=== PATIENT | male | born 1960 | race Hispanic/Latino ===

== ENCOUNTER 2018-06-18 07:20 | Emergency (ER) | payer MEDICARE ==
[2018-06-18 07:25] VITALS: BMI 29.9
--- NOTE | 2018-06-18 08:08 | ED PDOC ---
Arrival/HPI - General Chief Complaint: Psychiatric Evaluation Time Seen by Provider: 06/18/18 07:22 Historian: Patient, EMS - History of Present Illness Narrative History of Present Illness (Text): 06/18/18 08:09 58 year old male, whose past medical history includes asthma, hypothyroidism, arthritis, and schizophrenia, who presents to the emergency department brought in by EMS, for lack of sleeping and being off schizophrenia pills. EMS reports patient has been rambling and not making any sense when speaking. He denies fevers, chills, headache, dizziness, chest pain, shortness of breath, dyspnea on exertion, cough, abdominal pain, nausea, vomiting, diarrhea, back pain, neck pain, or any other complaint. Time/Duration: < week Symptom Onset: Gradual Symptom Course: Unchanged Activities at Onset: Light Context: Home Past Medical History - Provider Review Nursing Documentation Reviewed: Yes - Infectious Disease Hx of Infectious Diseases: None - Tetanus Immunization Tetanus Immunization: Unknown - Cardiac Hx Cardiac Disorders: No - Pulmonary Hx Asthma: Yes - Neurological Hx Neurological Disorder: No - HEENT Hx HEENT Disorder: No - Renal Hx Renal Disorder: No - Endocrine/Metabolic Hx Endocrine Disorders: Yes Hx Hypothyroidism: Yes - Hematological/Oncological Hx Blood Disorders: No - Integumentary Hx Dermatological Disorder: No - Musculoskeletal/Rheumatological Hx Arthritis: Yes - Gastrointestinal Hx Gastrointestinal Disorders: No - Genitourinary/Gynecological Hx Genitourinary Disorders: No - Psychiatric Hx Psychophysiologic Disorder: Yes Hx Schizophrenia: Yes Hx Substance Use: No - Past Surgical History Past Surgical History: No Previous - Anesthesia Hx Anesthesia: No Hx Anesthesia Reactions: No Hx Malignant Hyperthermia: No - Suicidal Assessment Feels Threatened In Home Enviroment: No Family/Social History - Physician Review Nursing Documentation Reviewed: Yes Family/Social History: No Known Family HX Smoking Status: Unknown If Ever Smoked Hx Alcohol Use: No Hx Substance Use: No Hx Substance Use Treatment: No Allergies/Home Meds Allergies/Adverse Reactions: Allergies No Known Allergies Allergy (Verified 07/22/12 15:21) Home Medications: Home Meds Medication Instructions Recorded Confirmed Levothyroxine [Synthroid] 50 mcg PO DAILY 06/18/18 06/18/18 clonazePAM [Klonopin] 0.5 mg PO DAILY 06/18/18 06/18/18 Review of Systems - Physician Review All systems were reviewed & negative as marked: Yes - Review of Systems Cardiovascular: absent: Chest Pain Gastrointestinal: absent: Abdominal Pain Physical Exam - Physical Exam Narrative Physical Exam (Text): 06/18/18 08:13 Constitutional: No acute distress. Head: Normocephalic. Atraumatic. Eyes: PERRL. ENT: Moist mucous membranes. Neck: Supple. Cardiovascular: Regular rate. Chest: No tenderness. Respiratory: Clear to auscultation bilaterally. GI: Soft. Nontender. Nondistended. Back: No CVA tenderness. Musculoskeletal: No tenderness or swelling of extremities. Skin: No rash. Neurologic: Alert, no focal deficit. Vital Signs Reviewed: Yes Vital Signs Temp Pulse Resp BP Pulse Ox 06/18/18 07:33 98 F 92 H 18 109/74 96 Temperature: Afebrile Blood Pressure: Normal Pulse: Tachycardic Respiratory Rate: Normal Appearance: Positive for: Well-Appearing, Non-Toxic, Comfortable Pain Distress: None Mental Status: Positive for: Alert and Oriented X 3 Medical Decision Making ED Course and Treatment: 06/18/18 08:14 Impression: 58 year old male who presents to the emergency department complaining of lack of sleep and running out of his schizophrenia pills. Plan: -- EKG -- Labs -- Chest X-ray -- Urinalysis -- Reassess and disposition Prior Visits: Notes and results from previous visits were reviewed. Progress Notes: EKG reviewed by me, shows: NSR 98 bpm, no ST elevations 06/18/18 08:24 Chest X-ray reviewed by me, shows: no acute disease 06/18/18 13:05 Evalauted by PES, will initate screening. 06/20/18 19:39 Patient was signed back out to me, accepted to [facility], pending bed availability. I signed it back out to ED night team the next day pending bed availability. I returned to work today, patient now not present in ED. - Lab Interpretations I have reviewed the lab results: Yes - RAD Interpretation Radiology Orders: 06/18/18 07:45 CHEST PORTABLE [RAD] Stat Receiving Associate: Radiologist - EKG Interpretation Interpreted by ED Physician: Yes Type: 12 lead EKG - Scribe Statement The provider has reviewed the documentation as recorded by the Scribe Kimi Mares Provider Scribe Attestation: All medical record entries made by the Scribe were at my direction and personally dictated by me. I have reviewed the chart and agree that the record accurately reflects my personal performance of the history, physical exam, medical decision making, and the department course for this patient. I have also personally directed, reviewed, and agree with the discharge instructions and disposition. Disposition/Present on Arrival - Present on Arrival Any Indicators Present on Arrival: No History of DVT/PE: No History of Uncontrolled Diabetes: No Urinary Catheter: No History of Decub. Ulcer: No History Surgical Site Infection Following: None - Disposition Have Diagnosis and Disposition been Completed?: No Diagnosis: Schizophrenia Disposition: Transfer [facility] Disposition Time: 12:00 Condition: STABLE Forms: [employer] (Portuguese)
[2018-06-18 08:14] LABS: BASO # 0.01 K/mm3 (0.0-2.0); BASO % 0.1 % (0.0-3.0); EOS # 0.1 (0.0-0.7); EOS % 0.4 % (1.5-5.0); HEMOGLOBIN 15.4 g/dL (14.0-18.0); LYMPH # 1.3 (1.2-3.4); LYMPH % 10.7 % (22.0-35.0); MEAN CORPUSCULAR HEMOGLOBIN 29.9 pg (25.0-35.0); MEAN PLATELET VOLUME 9.2 fl (7.0-11.0); MONO # 0.8 (0.1-0.6); MONO % 6.5 % (1.0-6.0); RBC 5.15 10^6/uL (3.5-6.1); RED CELL DISTRIBUTION WIDTH 13.5 % (11.5-14.5); WHITE BLOOD COUNT 11.7 10^3/uL (4.5-11.0)
[2018-06-18 08:21] LABS: ALB/GLOB RATIO 1.6 (1.1-1.8); ALBUMIN 4.5 g/dL (3.0-4.8); AST/SGOT 20 U/L (17-59); BLOOD UREA NITROGEN 14 mg/dL (7-21); CALCIUM 9.3 mg/dL (8.4-10.5); GFR NON-AFRICAN AMERICAN > 60
[2018-06-18 08:22] LABS: ACETAMINOPHEN < 10.0 ug/ml (10.0-20.0); SALICYLATE < 1 mg/dL (2.0-20.0)
[2018-06-18 08:23] LABS: ALT/SGPT < 6 U/L (7-56)
--- NOTE | 2018-06-18 08:41 | RAD ---
Date of service: 06/18/2018 HISTORY: psych COMPARISON: 09/08/2011 FINDINGS: LUNGS: No active pulmonary disease. PLEURA: No significant pleural effusion identified, no pneumothorax apparent. CARDIOVASCULAR: No aortic atherosclerotic calcification present. Normal cardiac size. No pulmonary vascular congestion. OSSEOUS STRUCTURES: No significant abnormalities. VISUALIZED UPPER ABDOMEN: Normal. OTHER FINDINGS: None. IMPRESSION: No active disease.
--- NOTE | 2018-06-18 10:33 | CARD ---
APPROVED REPORT Date of service: 06/18/2018 EKG Measurement Heart [id number] <Conclusion> Normal sinus rhythm Possible Anterior infarct, age undetermined Abnormal ECG
[2018-06-18 11:46] LABS: URINE BILIRUBIN NEGATIVE (NEGATIVE); URINE BLOOD NEGATIVE (NEGATIVE); URINE GLUCOSE (UA) NEGATIVE (NEGATIVE); URINE LEUKOCYTE ESTERASE NEGATIVE Leu/uL (NEGATIVE); URINE PROTEIN NEGATIVE mg/dL (<30 mg/dL); URINE UROBILINOGEN 0.2 E.U./dL (<1 E.U./dL)
[2018-06-18 11:58] LABS: URINE APPEARANCE CLEAR (CLEAR); URINE COLOR YELLOW (YELLOW)
[2018-06-18 12:08] LABS: BARBITURATES, UR NEGATIVE (NEGATIVE); BENZODIAZEPINES, UR NEGATIVE (NEGATIVE); OPIATES, UR NEGATIVE (NEGATIVE); PHENCYCLIDINE, UR NEGATIVE (NEGATIVE)
--- NOTE | 2018-06-18 16:46 | CON ---
DATE OF CONSULTATION: 06/18/2018 HISTORY OF PRESENT ILLNESS: In short, the patient is 58-year-old male with multiple medical issues including asthma, hypothyroidism, arthritis. The patient also has history of mental illness, most likely either mood spectrum disorder or psychotic spectrum disorder. The patient was brought in for evaluation of disorganized thoughts and behavior. In the emergency room, the patient presented to be disoriented, is rambling, not making any sense, that is why this medical underwriter got involved into the patient's care. As per PAS report, the patient presented to be disorganized, circumstantial, and tangential. No meaningful conversation possible. The patient lacks capacity to sign consent for treatment. [facility] was contacted. The patient was on benztropine, Depakote, Klonopin, as well as Clozaril and Abilify 10 mg at the bedtime. This medical underwriter attempted to speak to the patient, the patient is sleepy, no meaningful conversation possible. The patient said that he wants to urinate, and he hopes that this medical underwriter will not ask him a lot of questions, at the same time, the patient was fixated about book, what he is reading, the patient is not aware of the reason for him to come to the hospital. The patient reported that he sees Dr. Vargas Kay in the community. LABORATORY DATA: Labs reviewed. White blood cells 11.7. Chemistries reviewed. Urinalysis reviewed. Toxicology is negative for any substances. Reports reviewed. Previous history indicate that the patient has multiple psychiatric admissions under Dr. Nolan and Dr. Cueto and most recent was in 2011, but there is no access to the record because documentation was not scanned. MENTAL STATUS EXAMINATION: As this medical underwriter described above. The patient presented to be confused and disorganized, intermittent eye contact. Mood described as "I was manic." Thought process, circumstantial, tangential and disorganized. Thought content, the patient is obviously in manic stage, at the same time disorganized. Insight and judgment seemed to be lacking. Impulses are unpredictable. IMPRESSION: Most likely, the patient has schizoaffective disorder based on the history. PLAN: This medical underwriter will implement as-needed medication. This medical underwriter is not sure why the patient is on Clozaril and when it was initiated. This medical underwriter would suggest Klonopin to be resumed, but based on the labs, the patient's urine drug screen was negative for benzodiazepines, as needed medications recommended. At present moment, the patient lacks capacity to sign consent for treatment. This medical underwriter would initiate screening process, but if the patient is willing to sign himself into the hospital, we will be more than happy to help him. Thank you very much for letting me participate in care of your patient. Should you have any questions give me a call back. Cesia Deleon MD
--- NOTE | 2018-06-18 19:39 | ED PDOC ---
Physical Exam Vital Signs Reviewed: Yes Vital Signs Temp Pulse Resp BP Pulse Ox 06/18/18 18:54 78 17 112/76 98 06/18/18 16:46 83 18 117/79 98 06/18/18 14:00 90 18 105/75 96 06/18/18 10:16 88 18 110/72 97 06/18/18 07:33 98 F 92 H 18 109/74 96 Temperature: Afebrile Blood Pressure: Normal Pulse: Regular Respiratory Rate: Normal Appearance: Positive for: Well-Appearing, Non-Toxic, Comfortable Pain Distress: None Mental Status: Positive for: Alert and Oriented X 3 - Systems Exam Head: Present: Atraumatic, Normocephalic Pupils: Present: PERRL Extroacular Muscles: Present: EOMI Conjunctiva: Present: Normal Respiratory/Chest: Present: Clear to Auscultation, Good Air Exchange. No: Respiratory Distress, Accessory Muscle Use Cardiovascular: Present: Regular Rate and Rhythm, Normal S1, S2. No: Murmurs Abdomen: No: Tenderness, Distention, Peritoneal Signs Upper Extremity: Present: Normal Inspection. No: Cyanosis, Edema Lower Extremity: Present: Normal Inspection. No: Edema Neurological: Present: GCS=15, Speech Normal Skin: Present: Warm, Dry, Normal Color. No: Rashes Psychiatric: Present: Alert, Oriented x 3 Medical Decision Making ED Course and Treatment: 06/18/18 19:00 Case endorsed to me by Dr. Galicia for pending [facility] screening. Patient is a 58 year old male who presented to the Emergency department earlier today for evaluation of decreased somnolence and non-compliance with her medication for schizophrenia. Patient is currently resting in bed in no acute distress. Patient denies any new medical or psychiatric complaints. Patient has been medically cleared by prior team. 06/19/18 07:00 Case endorsed to /pending bed availability at [facility] - Lab Interpretations Lab Results: Total Bilirubin 0.9 mg/dL (0.2-1.3) 06/18/18 07:40 AST 20 U/L (17-59) 06/18/18 07:40 ALT < 6 U/L (7-56) L 06/18/18 07:40 Alkaline Phosphatase 54 U/L (38-126) 06/18/18 07:40 Total Protein 7.3 g/dL (5.8-8.3) 06/18/18 07:40 Albumin 4.5 g/dL (3.0-4.8) 06/18/18 07:40 Globulin 2.8 gm/dL 06/18/18 07:40 Albumin/Globulin Ratio 1.6 (1.1-1.8) 06/18/18 07:40 Urine Color Yellow (YELLOW) 06/18/18 10:50 Urine Appearance Clear (CLEAR) 06/18/18 10:50 Urine pH 6.0 (4.7-8.0) 06/18/18 10:50 Ur Specific [place] 1.015 (1.005-1.035) 06/18/18 10:50 Urine Protein Negative mg/dL (<30 mg/dL) 06/18/18 10:50 Urine Glucose (UA) Negative mg/dL (NEGATIVE) 06/18/18 10:50 Urine Ketones Negative mg/dL (NEGATIVE) 06/18/18 10:50 Urine Blood Negative (NEGATIVE) 06/18/18 10:50 Urine Nitrate Negative (NEGATIVE) 06/18/18 10:50 Urine Bilirubin Negative (NEGATIVE) 06/18/18 10:50 Urine Urobilinogen 0.2 E.U./dL (<1 E.U./dL) 06/18/18 10:50 Ur Leukocyte Esterase Negative Honey/uL (NEGATIVE) 06/18/18 10:50 - RAD Interpretation Radiology Orders: 06/18/18 07:45 CHEST PORTABLE [RAD] Stat - Scribe Statement The provider has reviewed the documentation as recorded by the Scribe Deborah Lux. All medical record entries made by the Shadyibe were at my direction and personally dictated by me. I have reviewed the chart and agree that the record accurately reflects my personal performance of the history, physical exam, medical decision making, and the department course for this patient. I have also personally directed, reviewed, and agree with the discharge instructions and disposition. Disposition/Present on Arrival - Present on Arrival Any Indicators Present on Arrival: No History of DVT/PE: No History of Uncontrolled Diabetes: No Urinary Catheter: No History of Decub. Ulcer: No History Surgical Site Infection Following: None - Disposition Have Diagnosis and Disposition been Completed?: No Diagnosis: Schizophrenia Disposition Time: 07:00 Patient Problems: Current Active Problems Problem Status Onset Schizophrenia Acute Condition: STABLE Forms: [employer] (Malagasy)
--- NOTE | 2018-06-19 13:46 | PN ---
DATE: 06/19/2018 SUBJECTIVE: The patient is 58-year-old male with reported history of psychosis. The patient had multiple hospitalizations in the past including this facility. The patient was brought in for evaluation of bizarre and manic behavior. The patient refused to sign consent for treatment and presented to be disoriented, confused and psychotic. This movie writer recommended [facility] screening. The patient was evaluated and then was accepted for screening. At present moment, the patient is waiting for bed to be available. The patient was seen today in the emergency room. The patient presented somewhat better, but completely disorganized. The patient was making statements, which are not making any sense. The patient's thought process is circumstantial and tangential. The patient was started with the statement that he was sitting in the bed and this is 2 hours out of four and this is his productive time, then the patient switched his conversation to the book what he is reading, which is 1948. The patient was saying something about light and then lightening, after that the patient said that he wanted to be a voluntary discharged, and the patient's presentation is bizarre and psychotic. Medications were confirmed with the patient's pharmacy. The patient was on Clozaril, Abilify, Depakote, Klonopin and benztropine. This movie writer has doubt that he was compliant with the medications. The patient's primary psychiatrist is . Vital signs reviewed, seems to be stable. Medications reviewed. The patient did not required any as-needed medications, but the patient will be started on sleep medication and as-needed medication in case of agitation and aggression. Labs reviewed and seems to be within normal limits. The patient is negative for any substances. MENTAL STATUS EXAMINATION: As this movie writer described above. The patient presented to be disorganized, poor hygiene. Intense eye contact. Speech was disorganized. Thought process was circumstantial, tangential, overinclusive. Thought content, the patient obviously is paranoid, disorganized. Insight and judgment seems to be very limited. Impulses are unpredictable. IMPRESSION Most likely, the patient has schizoaffective disorder bipolar type versus schizophrenia. PLAN: The patient is waiting for [facility] bed availability, the patient was accepted for screening. Meanwhile, at present moment, the patient will stay in the emergency room. This movie writer hope if the patient will have capacity to sign himself in it will be a voluntary admission, but based on the patient's presentation now, the patient lacks capacity to sign himself into the hospital. Thank you very much for letting me participate in care of your patient. Should you have any questions give me a call back. Cesia Deleon MD
[2018-06-19 15:13] VITALS: RESP 18
[2018-06-19 17:53] VITALS: O2SAT 98
--- NOTE | 2018-06-19 19:23 | ED PDOC ---
Physical Exam Vital Signs Temp Pulse Resp BP Pulse Ox 06/19/18 17:00 97.1 F L 84 18 126/81 98 06/19/18 13:00 69 18 117/77 99 06/19/18 07:00 69 14 111/62 100 06/19/18 04:34 81 14 116/76 99 06/19/18 02:41 87 16 117/62 100 06/18/18 22:20 82 16 132/86 99 06/18/18 18:54 78 17 112/76 98 06/18/18 16:46 83 18 117/79 98 06/18/18 14:00 90 18 105/75 96 06/18/18 10:16 88 18 110/72 97 06/18/18 07:33 98 F 92 H 18 109/74 96 Medical Decision Making ED Course and Treatment: 06/19/18 19:21 Case endorsed to me by Dr. Galicia for pending [facility] bed availability. Patient has been accepted for psychiatric admission at [facility] and has been medically cleared by previous team. Patient is currently resting in bed in no acute distress. Patient presents no new medical complaints. - Lab Interpretations Lab Results: Total Bilirubin 0.9 mg/dL (0.2-1.3) 06/18/18 07:40 AST 20 U/L (17-59) 06/18/18 07:40 ALT < 6 U/L (7-56) L 06/18/18 07:40 Alkaline Phosphatase 54 U/L (38-126) 06/18/18 07:40 Total Protein 7.3 g/dL (5.8-8.3) 06/18/18 07:40 Albumin 4.5 g/dL (3.0-4.8) 06/18/18 07:40 Globulin 2.8 gm/dL 06/18/18 07:40 Albumin/Globulin Ratio 1.6 (1.1-1.8) 06/18/18 07:40 Urine Color Yellow (YELLOW) 06/18/18 10:50 Urine Appearance Clear (CLEAR) 06/18/18 10:50 Urine pH 6.0 (4.7-8.0) 06/18/18 10:50 Ur Specific [place] 1.015 (1.005-1.035) 06/18/18 10:50 Urine Protein Negative mg/dL (<30 mg/dL) 06/18/18 10:50 Urine Glucose (UA) Negative mg/dL (NEGATIVE) 06/18/18 10:50 Urine Ketones Negative mg/dL (NEGATIVE) 06/18/18 10:50 Urine Blood Negative (NEGATIVE) 06/18/18 10:50 Urine Nitrate Negative (NEGATIVE) 06/18/18 10:50 Urine Bilirubin Negative (NEGATIVE) 06/18/18 10:50 Urine Urobilinogen 0.2 E.U./dL (<1 E.U./dL) 06/18/18 10:50 Ur Leukocyte Esterase Negative Honey/uL (NEGATIVE) 06/18/18 10:50 - RAD Interpretation Radiology Orders: 06/18/18 07:45 CHEST PORTABLE [RAD] Stat - Medication Orders Current Medication Orders: Lorazepam (Ativan) 2 mg IM Q6 PRN; Protocol PRN Reason: Agitation Zaleplon (Sonata) 5 mg PO HS PRN PRN Reason: Insomnia Ziprasidone (Geodon Inj) 20 mg IM Q6H PRN; Protocol PRN Reason: severe agitaiton/psychosis - Scribe Statement The provider has reviewed the documentation as recorded by the Scribe Deborah Lux. All medical record entries made by the Scribe were at my direction and personally dictated by me. I have reviewed the chart and agree that the record accurately reflects my personal performance of the history, physical exam, medical decision making, and the department course for this patient. I have also personally directed, reviewed, and agree with the discharge instructions and disposition. Disposition/Present on Arrival - Present on Arrival Any Indicators Present on Arrival: No History of DVT/PE: No History of Uncontrolled Diabetes: No Urinary Catheter: No History of Decub. Ulcer: No History Surgical Site Infection Following: None - Disposition Have Diagnosis and Disposition been Completed?: Yes Diagnosis: Schizophrenia Disposition: Transfer [facility] Disposition Time: 22:15 Patient Problems: Current Active Problems Problem Status Onset Schizophrenia Acute Condition: STABLE Forms: [employer] (Belgian)
[2018-06-20 02:24] VITALS: BP 138/82; PULSE 92; TEMP 97.8
== END 2018-06-20 02:23 | disposition short-term general hospital (02) ==
LOC: ED 07:20
DX: F20.9 Schizophrenia, unspecified (principal); J45.909 Unspecified asthma, uncomplicated; E03.9 Hypothyroidism, unspecified
CPT/HCPCS: 71045; 80053; 81003; 85025; 90791; 93005; 99285; G0480

== ENCOUNTER 2018-08-24 01:09 | Emergency (ER) | payer MEDICARE ==
[2018-08-24 01:45] VITALS: RESP 18
[2018-08-24 01:46] VITALS: BMI 28.0
[2018-08-24 02:56] LABS: BASO # 0.03 K/mm3 (0.0-2.0); BASO % 0.3 % (0.0-3.0); EOS # 0.1 (0.0-0.7); EOS % 1.2 % (1.5-5.0); HEMOGLOBIN 13.5 g/dL (14.0-18.0); LYMPH # 2.5 (1.2-3.4); LYMPH % 26.4 % (22.0-35.0); MEAN CELL VOLUME 86.5 fl (80.0-105.0); MEAN CORPUSCULAR HEMOGLOBIN 29.9 pg (25.0-35.0); MEAN CORPUSCULAR HGB CONC 34.6 g/dl (31.0-37.0); MEAN PLATELET VOLUME 9.2 fl (7.0-11.0); MONO # 0.6 (0.1-0.6); MONO % 6.9 % (1.0-6.0); RBC 4.51 10^6/uL (3.5-6.1); RED CELL DISTRIBUTION WIDTH 13.1 % (11.5-14.5); WHITE BLOOD COUNT 9.3 10^3/uL (4.5-11.0)
[2018-08-24 03:05] LABS: ACETAMINOPHEN < 10.0 ug/ml (10.0-20.0); ALB/GLOB RATIO 1.6 (1.1-1.8); ALBUMIN 4.3 g/dL (3.0-4.8); ALT/SGPT 14 U/L (7-56); AST/SGOT 16 U/L (17-59); BLOOD UREA NITROGEN 8 mg/dL (7-21); CALCIUM 9.5 mg/dL (8.4-10.5); GFR NON-AFRICAN AMERICAN > 60; SALICYLATE < 1 mg/dL (2.0-20.0)
[2018-08-24 03:06] LABS: PH,URINE 6.5 (4.7-8.0); URINE BILIRUBIN NEGATIVE (NEGATIVE); URINE BLOOD NEGATIVE (NEGATIVE); URINE GLUCOSE (UA) NEGATIVE (NEGATIVE); URINE LEUKOCYTE ESTERASE TRACE Leu/uL (NEGATIVE); URINE PROTEIN NEGATIVE mg/dL (<30 mg/dL); URINE UROBILINOGEN 0.2 E.U./dL (<1 E.U./dL)
[2018-08-24 03:10] LABS: URINE APPEARANCE CLEAR (CLEAR); URINE COLOR LIGHT YELLOW (YELLOW)
[2018-08-24 03:15] LABS: URINE BACTERIA FEW /hpf; URINE EPITHELIAL CELLS 0 - 2 /hpf (0-5); URINE RBC 0 - 2 /hpf (0-2)
[2018-08-24 03:35] LABS: BARBITURATES, UR NEGATIVE (NEGATIVE); BENZODIAZEPINES, UR NEGATIVE (NEGATIVE); OPIATES, UR NEGATIVE (NEGATIVE); PHENCYCLIDINE, UR NEGATIVE (NEGATIVE)
--- NOTE | 2018-08-24 05:52 | ED PDOC ---
Arrival/HPI - General Historian: Patient, EMS - History of Present Illness Narrative History of Present Illness (Text): 08/24/18 02:30 A 58 year old male, whose past medical history includes asthma, hypothyroidism, arthritis, and schizophrenia, presents to the emergency department complaining of insomnia for the past 31 days. Patient reports he needed a place to sleep and was found to be talking to himself by EMS. Patient reports h e needs to be reminded at 6:30 to take his synthroid. Patient denies any fever, chills, shortness of breath, chest pain, diarrhea, nausea, vomiting, urinary symptoms, back pain, neck pain, headache, dizziness, SI, HI, or any other complaints. PMD: Dr. Roberts Time/Duration: > month (31 days) Symptom Onset: Gradual Symptom Course: Unchanged Activities at Onset: Light Context: Street <Sumanth Rodriguez - Last Filed: 08/24/18 05:59> <Everett Nicholas - Last Filed: 08/24/18 18:16> - General Chief Complaint: Medical Clearance Past Medical History - Provider Review Nursing Documentation Reviewed: Yes - Infectious Disease Hx of Infectious Diseases: None - Tetanus Immunization Tetanus Immunization: Unknown - Cardiac Hx Cardiac Disorders: No Hx Hypertension: No - Pulmonary Hx Tuberculosis: No - Neurological HX Cerebrovascular Accident: No Hx Seizures: No - HEENT Hx HEENT Disorder: No - Renal Hx Renal Disorder: No - Endocrine/Metabolic Hx Endocrine Disorders: Yes Hx Hypothyroidism: Yes - Hematological/Oncological Hx Cancer: No - Integumentary Hx Dermatological Disorder: No - Musculoskeletal/Rheumatological Hx Arthritis: Yes - Gastrointestinal Hx Gastrointestinal Disorders: No - Genitourinary/Gynecological Hx Sexually Transmitted Diseases: No - Psychiatric Hx Psychophysiologic Disorder: Yes Hx Schizophrenia: Yes Hx Substance Use: No Other/Comment: manic - Past Surgical History Past Surgical History: No Previous - Anesthesia Hx Anesthesia: No Hx Anesthesia Reactions: No Hx Malignant Hyperthermia: No - Suicidal Assessment Feels Threatened In Home Enviroment: No <Sumanth Rodriguez - Last Filed: 08/24/18 05:59> Family/Social History - Physician Review Nursing Documentation Reviewed: Yes Family/Social History: No Known Family HX Smoking Status: Unknown If Ever Smoked Hx Alcohol Use: No Hx Substance Use: No Hx Substance Use Treatment: No <Sumanth Rodriguez - Last Filed: 08/24/18 05:59> Family/Social History: No Known Family HX <Everett Nicholas Last Filed: 08/24/18 18:16> Allergies/Home Meds <Sumanth Rodriguez Last Filed: 08/24/18 05:59> <Everett Nicholas - Last Filed: 08/24/18 18:16> Allergies/Adverse Reactions: Allergies No Known Allergies Allergy (Verified 07/22/12 15:21) Home Medications: Home Meds Medication Instructions Recorded Confirmed Levothyroxine [Synthroid] 75 mcg PO DAILY 06/18/18 08/24/18 clonazePAM [Klonopin] 0.5 mg PO DAILY 06/18/18 06/18/18 Review of Systems - Physician Review All systems were reviewed & negative as marked: Yes - Review of Systems Constitutional: Other (insomnia; no chills). absent: Fevers Respiratory: absent: SOB Cardiovascular: absent: Chest Pain Gastrointestinal: absent: Diarrhea, Nausea, Vomiting Musculoskeletal: absent: Back Pain, Neck Pain Neurological: absent: Headache, Dizziness Psychiatric: absent: Suicidal Ideation, Other (homicidal ideation) <Sumanth Rodriguez Filed: 08/24/18 05:59> Physical Exam Vital Signs Reviewed: Yes Vital Signs Temp Pulse Resp BP Pulse Ox 08/24/18 05:37 95 H 18 158/89 H 100 08/24/18 01:45 97.9 F 108 H 18 149/121 H 96 Temperature: Afebrile Blood Pressure: Hypertensive Pulse: Tachycardic Respiratory Rate: Normal - Systems Exam Head: Present: Atraumatic, Normocephalic Pupils: Present: PERRL Extroacular Muscles: Present: EOMI Conjunctiva: Present: Normal Mouth: Present: Moist Mucous Membranes Respiratory/Chest: Present: Clear to Auscultation, Good Air Exchange. No: Respiratory Distress, Accessory Muscle Use Cardiovascular: Present: Regular Rate and Rhythm, Normal S1, S2. No: Murmurs Abdomen: No: Tenderness, Distention, Peritoneal Signs Upper Extremity: Present: Normal Inspection. No: Cyanosis, Edema Lower Extremity: Present: Normal Inspection. No: Edema Neurological: Present: GCS=15, CN II-XII Intact, Speech Normal Skin: Present: Warm, Dry, Normal Color. No: Rashes Psychiatric: Present: Alert, Oriented x 3, Normal Insight, Normal Concentration <Sumanth Rodriguez - Last Filed: 08/24/18 05:59> Vital Signs Temp Pulse Resp BP Pulse Ox 08/24/18 05:37 95 H 18 158/89 H 100 08/24/18 01:45 97.9 F 108 H 18 149/121 H 96 <Everett Nicholas - Last Filed: 08/24/18 18:16> Medical Decision Making ED Course and Treatment: 08/24/18 02:30 Impression: 58 year old male presenting tot emergency department complaining of insomnia. Plan: -- Haldol -- Ativan -- Urine culture -- [facility] crisis evaluation -- Reassess and disposition Prior Visits: Notes and results from previous visits were reviewed. Progress Notes: - Lab Interpretations Lab Results: Total Bilirubin 0.4 mg/dL (0.2-1.3) 08/24/18 02:20 AST 16 U/L (17-59) L 08/24/18 02:20 ALT 14 U/L (7-56) 08/24/18 02:20 Alkaline Phosphatase 82 U/L (38-126) 08/24/18 02:20 Total Protein 7.1 g/dL (5.8-8.3) 08/24/18 02:20 Albumin 4.3 g/dL (3.0-4.8) 08/24/18 02:20 Globulin 2.8 gm/dL 08/24/18 02:20 Albumin/Globulin Ratio 1.6 (1.1-1.8) 08/24/18 02:20 Urine Color Light yellow (YELLOW) 08/24/18 02:20 Urine Appearance Clear (CLEAR) 08/24/18 02:20 Urine pH 6.5 (4.7-8.0) 08/24/18 02:20 Ur Specific [place] 1.020 (1.005-1.035) 08/24/18 02:20 Urine Protein Negative mg/dL (<30 mg/dL) 08/24/18 02:20 Urine Glucose (UA) Negative mg/dL (NEGATIVE) 08/24/18 02:20 Urine Ketones Negative mg/dL (NEGATIVE) 08/24/18 02:20 Urine Blood Negative (NEGATIVE) 08/24/18 02:20 Urine Nitrate Negative (NEGATIVE) 08/24/18 02:20 Urine Bilirubin Negative (NEGATIVE) 08/24/18 02:20 Urine Urobilinogen 0.2 E.U./dL (<1 E.U./dL) 08/24/18 02:20 Ur Leukocyte Esterase Trace Honey/uL (NEGATIVE) H 08/24/18 02:20 Urine RBC 0 - 2 /hpf (0-2) 08/24/18 02:20 Urine WBC 1 - 3 /hpf (0-6) 08/24/18 02:20 Ur Epithelial Cells 0 - 2 /hpf (0-5) 08/24/18 02:20 Urine Bacteria Few /hpf (NONE) 08/24/18 02:20 <Sumanth Rodriguez - Last Filed: 08/24/18 05:59> ED Course and Treatment: 08/24/18 07:11 Patient was turned over to me by . There has already been a crisis evaluation. He is waiting for screeners. No problems reported overnight. 08/24/18 08:16 Seen in ED by Dr. Mann. 08/24/18 10:19 Patient has been seen by screeners and will be committed to [facility]. We are awaiting a bed to become available. 08/24/18 15:22 EKG shows normal sinus rhythm rate approximately 85 with poor R wave progression and no acute ST or T wave changes. 08/24/18 17:04 Still waiting for a bed to become available at [facility]. 08/24/18 18:15 Care of this patient will be endorsed to the night emergency physician while the patient waits for a bed to become available at [facility]. - Lab Interpretations Lab Results: Total Bilirubin 0.4 mg/dL (0.2-1.3) 08/24/18 02:20 AST 16 U/L (17-59) L 08/24/18 02:20 ALT 14 U/L (7-56) 08/24/18 02:20 Alkaline Phosphatase 82 U/L (38-126) 08/24/18 02:20 Total Protein 7.1 g/dL (5.8-8.3) 08/24/18 02:20 Albumin 4.3 g/dL (3.0-4.8) 08/24/18 02:20 Globulin 2.8 gm/dL 08/24/18 02:20 Albumin/Globulin Ratio 1.6 (1.1-1.8) 08/24/18 02:20 Urine Color Light yellow (YELLOW) 08/24/18 02:20 Urine Appearance Clear (CLEAR) 08/24/18 02:20 Urine pH 6.5 (4.7-8.0) 08/24/18 02:20 Ur Specific [place] 1.020 (1.005-1.035) 08/24/18 02:20 Urine Protein Negative mg/dL (<30 mg/dL) 08/24/18 02:20 Urine Glucose (UA) Negative mg/dL (NEGATIVE) 08/24/18 02:20 Urine Ketones Negative mg/dL (NEGATIVE) 08/24/18 02:20 Urine Blood Negative (NEGATIVE) 08/24/18 02:20 Urine Nitrate Negative (NEGATIVE) 08/24/18 02:20 Urine Bilirubin Negative (NEGATIVE) 08/24/18 02:20 Urine Urobilinogen 0.2 E.U./dL (<1 E.U./dL) 08/24/18 02:20 Ur Leukocyte Esterase Trace Honey/uL (NEGATIVE) H 08/24/18 02:20 Urine RBC 0 - 2 /hpf (0-2) 08/24/18 02:20 Urine WBC 1 - 3 /hpf (0-6) 08/24/18 02:20 Ur Epithelial Cells 0 - 2 /hpf (0-5) 08/24/18 02:20 Urine Bacteria Few /hpf (NONE) 08/24/18 02:20 - Medication Orders Current Medication Orders: Discontinued Medications Haloperidol Lactate (Haldol) 5 mg IM STAT STA; Protocol Stop: 08/24/18 05:53 Last Admin: 08/24/18 06:01 Dose: 5 mg IM Administration Charges Document 08/24/18 06:01 IT (Rec: 08/24/18 06:01 IT [id number]) Injection Site MAR Injection Site Left Deltoid Charges for Administration # of IM Administrations 1 Lorazepam (Ativan) 2 mg IM ONCE ONE; Protocol Stop: 08/24/18 05:53 Last Admin: 08/24/18 06:01 Dose: 2 mg IM Administration Charges Document 08/24/18 06:01 IT (Rec: 08/24/18 06:01 IT [id number]) Injection Site MAR Injection Site Left Deltoid Charges for Administration # of IM Administrations 1 <Everett Nicholas - Last Filed: 08/24/18 18:16> - Scribe Statement The provider has reviewed the documentation as recorded by the Shadyibjitendra Rodriguez All medical record entries made by the Scribe were at my direction and persona devony dictated by me. I have reviewed the chart and agree that the record accurately reflects my personal performance of the history, physical exam, medical decision making, and the department course for this patient. I have also personally directed, reviewed, and agree with the discharge instructions and disposition. <Sumanth Rodriguez - Last Filed: 08/24/18 05:59> - PA / CAKE WASHER / Resident Statement / has reviewed & agrees with the documentation as recorded. <Everett Nicholas - Last Filed: 08/24/18 18:16> Disposition/Present on Arrival - Present on Arrival History of DVT/PE: No History of Uncontrolled Diabetes: No Urinary Catheter: No History of Decub. Ulcer: No History Surgical Site Infection Following: None <Sumanth Rodriguez - Last Filed: 08/24/18 05:59> - Present on Arrival Any Indicators Present on Arrival: No History of DVT/PE: No History of Uncontrolled Diabetes: No Urinary Catheter: No History of Decub. Ulcer: No History Surgical Site Infection Following: None - Disposition Have Diagnosis and Disposition been Completed?: Yes Disposition Time: 18:16 Patient Plan: Admission <Everett Nicholas - Last Filed: 08/24/18 18:16> - Disposition Diagnosis: Schizophrenia Disposition: Transfer [facility] [place] Patient Problems: Current Active Problems Problem Status Onset Schizophrenia Acute Condition: FAIR Referrals: Lalo Roberts MD [Primary Care Provider] - Follow up with primary Forms: [employer] (Fijian)
--- NOTE | 2018-08-24 15:34 | RAD ---
Date of service: 08/24/2018 HISTORY: PSYCH COMPARISON: 06/18/2018. FINDINGS: LUNGS: The lungs are well inflated and clear. PLEURA: No pleural effusions or pneumothorax. CARDIOVASCULAR: The heart is normal in size. No aortic atherosclerotic calcifications present. OSSEOUS STRUCTURES: Within normal limits for the patient's age. VISUALIZED UPPER ABDOMEN: Normal. OTHER FINDINGS: None. IMPRESSION: No active pulmonary disease.
--- NOTE | 2018-08-24 22:23 | ED PDOC ---
Physical Exam Vital Signs Temp Pulse Resp BP Pulse Ox 08/24/18 17:00 97.6 F 80 18 128/76 98 08/24/18 15:19 98.2 F 82 18 132/77 97 08/24/18 12:26 88 18 128/89 98 08/24/18 08:09 98.1 F 91 H 18 135/86 98 08/24/18 05:37 95 H 18 158/89 H 100 08/24/18 01:45 97.9 F 108 H 18 149/121 H 96 Medical Decision Making ED Course and Treatment: 08/24/18 22:22 Case endorsed to me by Dr. Nicholas. Patient currently awaiting for bed availability for psych transfer to [facility] [place]. - Lab Interpretations Lab Results: Total Bilirubin 0.4 mg/dL (0.2-1.3) 08/24/18 02:20 AST 16 U/L (17-59) L 08/24/18 02:20 ALT 14 U/L (7-56) 08/24/18 02:20 Alkaline Phosphatase 82 U/L (38-126) 08/24/18 02:20 Total Protein 7.1 g/dL (5.8-8.3) 08/24/18 02:20 Albumin 4.3 g/dL (3.0-4.8) 08/24/18 02:20 Globulin 2.8 gm/dL 08/24/18 02:20 Albumin/Globulin Ratio 1.6 (1.1-1.8) 08/24/18 02:20 Urine Color Light yellow (YELLOW) 08/24/18 02:20 Urine Appearance Clear (CLEAR) 08/24/18 02:20 Urine pH 6.5 (4.7-8.0) 08/24/18 02:20 Ur Specific [place] 1.020 (1.005-1.035) 08/24/18 02:20 Urine Protein Negative mg/dL (<30 mg/dL) 08/24/18 02:20 Urine Glucose (UA) Negative mg/dL (NEGATIVE) 08/24/18 02:20 Urine Ketones Negative mg/dL (NEGATIVE) 08/24/18 02:20 Urine Blood Negative (NEGATIVE) 08/24/18 02:20 Urine Nitrate Negative (NEGATIVE) 08/24/18 02:20 Urine Bilirubin Negative (NEGATIVE) 08/24/18 02:20 Urine Urobilinogen 0.2 E.U./dL (<1 E.U./dL) 08/24/18 02:20 Ur Leukocyte Esterase Trace Honey/uL (NEGATIVE) H 08/24/18 02:20 Urine RBC 0 - 2 /hpf (0-2) 08/24/18 02:20 Urine WBC 1 - 3 /hpf (0-6) 08/24/18 02:20 Ur Epithelial Cells 0 - 2 /hpf (0-5) 08/24/18 02:20 Urine Bacteria Few /hpf (NONE) 08/24/18 02:20 - RAD Interpretation Radiology Orders: 08/24/18 15:01 CHEST PORTABLE [RAD] Stat - Medication Orders Current Medication Orders: Discontinued Medications Haloperidol Lactate (Haldol) 5 mg IM STAT STA; Protocol Stop: 08/24/18 05:53 Last Admin: 08/24/18 06:01 Dose: 5 mg IM Administration Charges Document 08/24/18 06:01 IT (Rec: 08/24/18 06:01 IT [id number]) Injection Site MAR Injection Site Left Deltoid Charges for Administration # of IM Administrations 1 Lorazepam (Ativan) 2 mg IM ONCE ONE; Protocol Stop: 08/24/18 05:53 Last Admin: 08/24/18 06:01 Dose: 2 mg IM Administration Charges Document 08/24/18 06:01 IT (Rec: 08/24/18 06:01 IT [id number]) Injection Site MAR Injection Site Left Deltoid Charges for Administration # of IM Administrations 1 Quetiapine Fumarate (Seroquel) 50 mg PO HS STA; Protocol Stop: 08/24/18 08:42 Last Admin: 08/24/18 08:54 Dose: 50 mg - Transfer of Care Patient signed out to Dr:: Kosta Other: [facility] [place] transfer for admission - Scribe Statement The provider has reviewed the documentation as recorded by the Everett Valadez Provider Scribe Attestation: All medical record entries made by the Scribe were at my direction and personally dictated by me. I have reviewed the chart and agree that the record accurately reflects my personal performance of the history, physical exam, medical decision making, and the department course for this patient. I have also personally directed, reviewed, and agree with the discharge instructions and disposition. Disposition/Present on Arrival - Present on Arrival Any Indicators Present on Arrival: No History of DVT/PE: No History of Uncontrolled Diabetes: No Urinary Catheter: No History of Decub. Ulcer: No History Surgical Site Infection Following: None - Disposition Have Diagnosis and Disposition been Completed?: Yes Diagnosis: Schizophrenia Disposition: Transfer [facility] [place] Disposition Time: 07:00 Patient Problems: Current Active Problems Problem Status Onset Schizophrenia Acute Condition: STABLE Referrals: Lalo Roberts MD [Primary Care Provider] - Follow up with primary Forms: [employer] (Moroccan)
[2018-08-25 05:17] VITALS: O2SAT 100
[2018-08-25 09:41] VITALS: TEMP 98.1
[2018-08-25 09:50] VITALS: PULSE 77
[2018-08-25 11:24] VITALS: BP 134/79
--- NOTE | 2018-08-26 07:15 | CARD ---
APPROVED REPORT Date of service: 08/24/2018 EKG Measurement Heart [id number] <Conclusion> Normal sinus rhythm Low voltage QRS Cannot rule out Anterior infarct, age undetermined Abnormal ECG
== END 2018-08-25 11:29 | disposition short-term general hospital (02) ==
LOC: ED 01:09
DX: F20.9 Schizophrenia, unspecified (principal); J45.909 Unspecified asthma, uncomplicated; E03.9 Hypothyroidism, unspecified; M19.90 Unspecified osteoarthritis, unspecified site
CPT/HCPCS: 71045; 80053; 81001; 83735; 84443; 85025; 87086; 93005; 96372; 99285; G0480; J1630; J2060